=== PATIENT | male | born 1955 | race Caucasian/White ===

== ENCOUNTER → 2022-11-06 12:49 | Outpatient (CLI) | payer MEDICARE, OTHER, SELFPAY ==
--- NOTE | 2022-11-06 12:54 | DI.ECHO.S_ITS ---
[facility]---------+ [facility] +---------+ : : [address] : [place] : : : : [id number] : : : : Phone: [phone]+ Echocardiogram Report + + :Name: ASTER JAY Study Date: 11/06/2022 Height: 69 in : :[facility] ReadingLocation: Weight: 225 lb : : Gender: Male BSA: 2.2 m2 : :: 1955 Age: 67 yrs BP: 150/90 mmHg: :Reason For Study: DYPSNEA : :Ordering Physician: VIKAS, : :ANNETTE Performed By: Summer Reich : :Referring: ANNETTE BERRIOS : + + Interpretation Summary 1) Normal left ventricular thickness, size, wall motion, and systolic function (EF 60-65%). 2) Mildly enlarged right ventricular size with normal function. 3) No significant valvular abnormalities. 4) The aortic root is mildly dilated at 4.1cm. The ascending aorta is mildly enlarged at 3.9cm. 5) No prior Echo available for comparison. Procedure: A two-dimensional transthoracic echocardiogram with color flow and Doppler was performed. The study quality was technically difficult. There is no prior echocardiogram noted for this patient. The patient was in sinus rhythm with heart rates between 59-65 bpm during the exam. Left Ventricle: The left ventricle is normal in size and wall thickness. The ejection fraction is estimated to be 60-65%. Left ventricular systolic function appears normal without focal wall motion abnormalities. Right Ventricle: The right ventricle is mildly dilated. The right ventricular systolic function is normal. Atria: The left atrium is moderately dilated. Right atrial size is normal. There is no Doppler evidence for an interatrial shunt. Mitral Valve: The mitral valve is normal in structure and function. There is no mitral regurgitation noted. Aortic Valve: The aortic valve is trileaflet. The aortic valve opens well. There is no aortic valve stenosis. No aortic regurgitation is present. Tricuspid Valve: The tricuspid valve is normal in structure and function. There is trace tricuspid regurgitation. Pulmonary artery pressures cannot be estimated because of the lack of a measurable TR jet velocity. Pulmonic Valve: The pulmonic valve is not well visualized. There is no pulmonic valvular regurgitation. Great Vessels: The aortic root is mildly dilated. The ascending aorta is mildly enlarged. The IVC is of normal diameter and collapses greater than 50% with a sniff. This suggests a low right atrial pressure of 3 mm Hg. Pericardium/ Pleura There is no pericardial effusion. There is no pleural effusion. MMode/2D Measurements & Calculations LVIDd: 4.9 cm LVOT diam: 2.5 cm LVIDs: 3.2 cm Ao root diam: 4.1 cm FS: 35.3 % asc Aorta Diam: 3.9 cm IVSd: 0.99 cm Ao Arch Diam (Prox Trans): 3.4 cm LVPWd: 0.98 cm LV treviño. diameter/BSA (cm/m^2): 2.3 LV sys. diameter/BSA (cm/m^2): 1.5 LA A2 area: 25.6 cm2 RA long axis: 5.4 cm LA A4 area: 24.3 cm2 RA area: 19.2 cm2 LA length (vol): 6.7 cm RA vol: 57.9 ml LA vol: 78.7 ml RA : 26.6 ml/m2 LA vol index: 36.3 ml/m2 IVC diam: 1.9 cm RVD1 (basal): 4.5 cm TAPSE: 2.6 cm Doppler Measurements & Calculations Ao V2 max: 144.0 cm/sec LVOT Max Chato: 112.1 cm/sec Ao V2 mean: 109.4 cm/sec LV V1 max P.0 mmHg Ao max P.3 mmHg LV V1 VTI: 24.7 cm Ao mean P.1 mmHg AMINA(I,D): 4.0 cm2 Ao V2 VTI: 30.9 cm AMINA(V,D): 3.9 cm2 sev ratio: 0.80 AMINA indexed to BSA (cm^2/m^2): 1.9 MV E max chato: 78.4 cm/sec PA V2 max: 107.3 cm/sec MV A max chato: 72.7 cm/sec PA V2 mean: 78.6 cm/sec MV E/A: 1.1 PA mean P.7 mmHg Med Peak E' Chato: 7.8 cm/sec PA pr(Accel): 32.8 mmHg E/E' med: 10.0 Lat Peak E' Chato: 11.4 cm/sec E/E' lat: 6.9 E/e' average: 8.4 MV dec time: 0.24 sec SV(LVOT): 124.5 ml Reading Physician:05:59 PM
[2022-11-06 14:04] LABS: COVID19 -Nasal RAPID Negative (Negative)
--- NOTE | 2022-11-06 18:51 | DI.NM.S_ITS ---
DATE OF SERVICE: 11/06/2022 PROCEDURE: Exercise stress test. INDICATION: Bradycardia, syncope. CARDIAC STRESS: Patient underwent exercise stress test under the supervision of an attending staff. The patient walked on [place] protocol for 7 minutes and achieved 97 percent of target heart rate with maximum heart rate 150 beats per minute. Resting blood pressure 142/94 and peak blood pressure 220/110 mmHg, suggestive of hypertensive blood pressure response. Achieved 10.1 METs of workload and GHISLAINE -10 percent. Baseline rhythm was sinus. During stress, no convincing ischemic changes seen. No significant sustained arrhythmias seen. No ischemic symptoms, however the patient felt fatigue. CONCLUSION: Exercise stress test is negative for inducible ischemia. Hypertensive blood pressure response. Functional aerobic impairment -10 percent. Achieved 10.1 metabolic equivalents of workload. Peak blood pressure 220/110 mmHg. No complex significant sustained arrhythmias seen. No chest pain. Overall, low-risk exercise stress test. Joshua Matt - SWATI/bari/martita doc#: [id number]/job#: [id number] dd: 11/06/2022 17:00:00 dt: 11/06/2022 17:22:00 DICTATING MD/COPIES TO: Ping Doran MD COPIES MNE: CRISTIAN;
== END ==
PROVIDERS: PCP Family Medicine; Referring Provider Internal Medicine Cardiovascular Disease; Visit Provider Internal Medicine Cardiovascular Disease
DX: I77.810 Thoracic aortic ectasia (principal); I77.89 Other specified disorders of arteries and arterioles; R06.09 Other forms of dyspnea; Z20.822 Contact with and (suspected) exposure to COVID-19
CPT/HCPCS: 87635; 93017; 93306

== ENCOUNTER → 2024-06-11 12:11 | Outpatient (CLI) | payer MEDICARE, OTHER, SELFPAY ==
--- NOTE | 2024-06-11 12:13 | DI.ECHO.S_ITS ---
[facility] : : [address] : [place] : : [id number] : : Phone: [phone] Echocardiogram Report + + :Name: ASTER JAY Study Date: 06/11/2024 Height: 69 in : :[facility] ReadingLocation: Weight: 230 lb : : Gender: Male BSA: 2.2 m2 : :: 1955 Age: 69 yrs BP: 161/91 mmHg: :Reason For Study: AORTIC ROOT ENLARGEMENT : :Ordering Physician: VIKAS, : :ANNETTE Performed By: Stef Pagan : :Referring: ANNETTE BERRIOS : + + Interpretation Summary 1) Normal left ventricular thickness, size, wall motion, and systolic function (EF 60-65%). 2) Mildly enlarged right ventricular size with normal function. 3) No significant valvular abnormalities. 4) Compared to the Echo done 11/06/2022, no aorta enlargement is noted on this study. Procedure: A two-dimensional transthoracic echocardiogram with color flow and Doppler was performed. The study quality was technically adequate. Comparison is made with the echocardiogram of 11/06/2022. The patient was in sinus rhythm with heart rates between 58-72 bpm during the exam. Left Ventricle: The left ventricle is normal in size. There is normal left ventricular wall thickness. Proximal septal thickening is noted. The ejection fraction is estimated to be 60-65%. Left ventricular systolic function appears normal without focal wall motion abnormalities. Right Ventricle: The right ventricle is mildly dilated. The right ventricular systolic function is normal. Atria: The left atrium is moderately dilated. The right atrium is mildly dilated. The interatrial septum grossly appears intact with no obvious evidence for an atrial septal defect. Mitral Valve: The mitral valve is normal. There is no mitral valve stenosis. There is no mitral regurgitation noted. Aortic Valve: The aortic valve is trileaflet. There is no aortic valve stenosis. No aortic regurgitation is present. Tricuspid Valve: The tricuspid valve is normal. There is no tricuspid stenosis. No tricuspid regurgitation. Pulmonic Valve: The pulmonic valve is not well visualized. There is no pulmonic valvular stenosis. There is no pulmonic valvular regurgitation. Great Vessels: The aortic root is borderline dilated. The ascending aorta is mildly enlarged. The IVC is of normal diameter and collapses greater than 50% with a sniff. This suggests a low right atrial pressure of 3 mm Hg. Pericardium/ Pleura There is no pericardial effusion. There is no pleural effusion. MMode/2D Measurements & Calculations LVIDd: 5.4 cm LVOT diam: 2.4 cm LVIDs: 3.7 cm Ao root diam: 3.7 cm FS: 30.6 % asc Aorta Diam: 3.8 cm IVSd: 1.2 cm Ao Arch Diam (Prox Trans): 2.4 cm LVPWd: 1.0 cm LV treviño. diameter/BSA (cm/m^2): 2.4 LV sys. diameter/BSA (cm/m^2): 1.7 LA A2 area: 33.4 cm2 RA long axis: 4.5 cm LA A4 area: 27.9 cm2 RA area: 17.2 cm2 LA length (vol): 6.8 cm RA vol: 55.8 ml LA vol: 115.7 ml RA : 25.5 ml/m2 LA vol index: 52.8 ml/m2 IVC diam: 2.0 cm RVD1 (basal): 4.7 cm RVD2 (mid): 4.0 cm TAPSE: 3.3 cm Doppler Measurements & Calculations Ao V2 max: 137.6 cm/sec LVOT Max Chato: 113.4 cm/sec Ao V2 mean: 104.3 cm/sec LV V1 max P.1 mmHg Ao max P.6 mmHg LV V1 VTI: 27.8 cm Ao mean P.7 mmHg AMINA(I,D): 4.1 cm2 Ao V2 VTI: 29.8 cm AMINA(V,D): 3.7 cm2 sev ratio: 0.93 AMINA indexed to BSA (cm^2/m^2): 1.9 MV E max chato: 86.7 cm/sec PA V2 max: 105.6 cm/sec MV A max chato: 61.8 cm/sec PA V2 mean: 78.3 cm/sec MV E/A: 1.4 PA mean P.6 mmHg Med Peak E' Chato: 10.0 cm/sec PA pr(Accel): 32.8 mmHg E/E' med: 8.6 Lat Peak E' Chato: 10.6 cm/sec E/E' lat: 8.2 E/e' average: 8.4 MV dec time: 0.18 sec SV(LVOT): 123.4 ml Reading Physician:01:50 PM
== END ==
LOC: ECHO 12:12
PROVIDERS: PCP Family Medicine; Referring Provider Internal Medicine Cardiovascular Disease; Visit Provider Internal Medicine Cardiovascular Disease
DX: I77.89 Other specified disorders of arteries and arterioles (principal)
CPT/HCPCS: 93306